=== PATIENT | female | born 1975 | race Caucasian/White ===

== ENCOUNTER 2023-08-29 07:50 | Inpatient (IN) | payer MEDICAID ==
[~2023-08-29] VITALS: Ht 175.3 cm; Wt 67.7 kg
[2023-08-29 12:05] VITALS: BP 136/82; PULSE 72; RESP 14; TEMP 98.2; O2SAT 98
[2023-08-29] MEDS ORDERED: magnesium hydroxide 30ml (MOM) UD suspension PO PRN (12:25)
[2023-08-29] MEDS ORDERED: acetaminophen 325mg tablet PO PRN (12:25)
[2023-08-29] MEDS ORDERED: loperamide 2mg capsule PO PRN (12:25)
[2023-08-29] MEDS ORDERED: mag hydrox/Alum hydrox/simeth 30ml oral suspension PO PRN (12:25)
[2023-08-29 13:08] VITALS: RESP 14; O2SAT 98
[2023-08-29] MEDS ORDERED: METH-798 PO (13:18)
[2023-08-29] MEDS ORDERED: FLUT16SP26 BOTHNARES (13:18)
[2023-08-29] MEDS ORDERED: GABA300C PO (13:18)
[2023-08-29] MEDS ORDERED: CHOL500050 PO (13:18)
[2023-08-29] MEDS ORDERED: ONDA8TAB13 PO (13:18)
[2023-08-29] MEDS ORDERED: ALPR1TAB7 PO (13:18)
[2023-08-29] MEDS ORDERED: LIDO700A47 TOP (13:18)
[2023-08-29] MEDS ORDERED: METO50TA16 PO (13:18)
[2023-08-29] MEDS ORDERED: AMLO10TA13 PO (13:18)
[2023-08-29] MEDS ORDERED: PREG50CA65 PO (13:18)
[2023-08-29] MEDS ORDERED: FENT1PAT7 TOP (13:18)
[2023-08-29] MEDS ORDERED: ALBU8HFA INH (13:18)
[2023-08-29] MEDS ORDERED: LORA10TA7 PO (13:32)
[2023-08-29] MEDS ORDERED: POTA8TAB69 PO (13:32)
[2023-08-29] MEDS ORDERED: VALA500T41 PO (13:32)
[2023-08-29] MEDS ORDERED: CLON0.2T2 PO (13:32)
[2023-08-29] MEDS: acetaminophen 325mg tablet PO PRN (14:35)
[2023-08-29] MEDS: cyclobenzaprine 10mg tablet PO SCH (18:35)
[2023-08-29] MEDS ORDERED: albuterol 2.5 MG/3 ML nebule NEB PRN (18:40)
[2023-08-29 19:00] VITALS: RESP 18; O2SAT 95
[2023-08-29 20:00] VITALS: BP 139/95; PULSE 66; RESP 18; TEMP 98.4; O2SAT 95
[2023-08-29] MEDS: valacyclovir 500mg tablet PO SCH (20:00)
[2023-08-29] MEDS: potassium chloride 8mEq ER tablet PO SCH (20:35)
[2023-08-29] MEDS: gabapentin 300mg capsule PO SCH (20:36)
[2023-08-29] MEDS: pregabalin 25mg capsule PO SCH (20:36)
[2023-08-29] MEDS: cholecalciferol (vitamin D3) 1,000 unit (25mcg) tablet PO SCH (20:37)
[2023-08-29] MEDS: metoprolol tartrate 50mg tablet PO SCH (20:38)
[2023-08-30 07:07] VITALS: RESP 14; O2SAT 98
[2023-08-30 08:00] VITALS: BP 140/97; PULSE 54; RESP 18; TEMP 97.8; O2SAT 99
[2023-08-30] MEDS: amLODIPine 5mg tablet PO SCH (08:00)
[2023-08-30] MEDS: loratadine 10mg tablet PO SCH (08:24)
[2023-08-30] MEDS: fluticasone nasal spray 16GM bottle NS SCH (08:26)
[2023-08-30] MEDS: LIDOcaine 5% patch TP SCH (08:26)
[2023-08-30 11:24] LABS: CHOL/HDL RATIO 4.1 (0.00-4.99); CHOLESTEROL 168 MG/DL (0-200); HDL CHOLESTEROL 41 MG/DL (35-60); LDL CHOLESTEROL 104 MG/DL (50-100); TRIGLYCERIDES 102 MG/DL (20-135)
[2023-08-30 12:51] LABS: HEMOGLOBIN A1C 5.6 % (4.5-6.2)
[2023-08-30 19:00] VITALS: RESP 16; O2SAT 97
[2023-08-30 19:32] VITALS: PULSE 96; RESP 16; O2SAT 98
[2023-08-30 19:45] VITALS: BP 141/88; PULSE 77; RESP 16; TEMP 98.1; O2SAT 97
[2023-08-31] MEDS: fentaNYL 25MCG/hour patch.TD72 TD SCH (03:17)
[2023-08-31 07:33] VITALS: RESP 14; O2SAT 98
[2023-08-31 08:00] VITALS: BP 122/88; PULSE 67; RESP 16; TEMP 98; O2SAT 95
[2023-08-31 14:25] VITALS: PULSE 53; RESP 16; O2SAT 98
[2023-08-31 19:00] VITALS: RESP 15; O2SAT 99
[2023-08-31 19:19] VITALS: BP 120/79; PULSE 61; RESP 15; TEMP 98.2; O2SAT 99
[2023-08-31] MEDS: LORazepam 1 MG tablet PO PRN (20:30)
[2023-09-01 07:00] VITALS: RESP 14; O2SAT 98
[2023-09-01 08:47] VITALS: BP 124/85; PULSE 54; RESP 14; TEMP 97.3; O2SAT 99
[2023-09-01] MEDS: ondansetron 4mg rapidly disintigrating tab PO PRN (11:30)
[2023-09-01 19:23] VITALS: BP 115/78; PULSE 82; RESP 14; TEMP 97.7; O2SAT 97
[2023-09-02] MEDS: cloNIDine 0.1 mg tablet PO PRN (00:41)
[2023-09-02 07:00] VITALS: RESP 16; O2SAT 100
[2023-09-02 07:27] VITALS: BP 126/89; PULSE 57; RESP 16; TEMP 98.6; O2SAT 100
[2023-09-02] MEDS ORDERED: valacyclovir 500mg tablet PO PRN (09:30)
[2023-09-02 19:00] VITALS: RESP 14; O2SAT 100
[2023-09-02 19:05] VITALS: BP 115/72; PULSE 60; RESP 14; TEMP 97.6; O2SAT 100
[2023-09-02] MEDS ORDERED: hydrOXYzine 25 MG tablet PO PRN (21:40)
[2023-09-03 07:00] VITALS: RESP 16; O2SAT 97
[2023-09-03 08:00] VITALS: BP 102/74; PULSE 78; RESP 16; TEMP 98
[2023-09-03 10:07] LABS: BASOPHILS % (AUTO) 0.7 % (0-1); EOSINOPHILS # (AUTO) 0.2 X10'3 (0-0.9); EOSINOPHILS % (AUTO) 2.9 % (0-6); HEMOGLOBIN 13.3 g/dl (12.0-16.0); LYMPHOCYTES # (AUTO) 2.1 X10'3 (1.1-4.8); LYMPHOCYTES % (AUTO) 39.9 % (21-51); MEAN CORPUSCULAR HEMOGLOBIN 32.6 PG (27.0-31.0); MEAN CORPUSCULAR HGB CONC 32.5 g/dL (33.0-36.5); MEAN PLATELET VOLUME 9.2 FL (7.4-10.4); MONOCYTES # (AUTO) 0.5 X10'3 (0-0.9); MONOCYTES % (AUTO) 8.5 % (2-12); NEUTROPHILS # (AUTO) 2.6 X10'3 (1.8-7.7); PLATELET COUNT 274 X10'3 (140-440); RED BLOOD COUNT 4.09 X10'6 (4.20-5.60); RED CELL DISTRIBUTION WIDTH 15.5 % (11.5-14.5); WHITE BLOOD COUNT 5.3 X10'3 (4.5-11.0)
[2023-09-03 10:46] LABS: PLATELET ESTIMATE NORMAL
[2023-09-03 10:53] LABS: ALANINE AMINOTRANSFERASE 17 U/L (12-78); ALBUMIN 3.4 G/DL (3.4-5.0); ALBUMIN/GLOBULIN RATIO 1.2 (1.1-1.5); ALKALINE PHOSPHATASE 33 IU/L (46-116); ANION GAP 9 (8-16); ASPARTATE AMINO TRANSFERASE 17 U/L (10-37); BILIRUBIN,TOTAL 0.4 MG/DL (0.1-1.0); BLOOD UREA NITROGEN 12 MG/DL (7-18); BUN/CREATININE RATIO 12.2 (10.0-20.0); CALCIUM 8.9 MG/DL (8.5-10.1); CHLORIDE 105 MMOL/L (99-107); CREATININE 0.98 MG/DL (0.40-0.90); GLUCOSE 80 MG/DL (70-104); POTASSIUM 3.8 MMOL/L (3.5-5.1); SODIUM 141 MMOL/L (135-145); TOTAL CARBON DIOXIDE 27.1 MMOL/L (24-32); TOTAL PROTEIN 6.2 G/DL (6.4-8.2); eCRCL 75 ML/MIN; eGFR 61 ML/MIN
[2023-09-03] MEDS ORDERED: METO25TA6 PO (11:43)
[2023-09-03] MEDS: lactose-reduced food (Ensure Enlive) - 237ml bottle PO SCH (12:48)
[2023-09-03] MEDS ORDERED: cyclobenzaprine 10mg tablet PO PRN (14:45)
[2023-09-03 19:00] VITALS: BP 116/75; PULSE 67; RESP 14; TEMP 98.3; O2SAT 100
[2023-09-03] MEDS: LORazepam 0.5 MG tablet PO PRN (19:51)
[2023-09-03] MEDS: docusate sod 100mg capsule PO SCH (20:12)
[2023-09-03] MEDS: gabapentin 100mg capsule PO SCH (20:14)
[2023-09-04 07:00] VITALS: BP 105/76; PULSE 62; RESP 14; RESP 18; TEMP 98.1; O2SAT 95; O2SAT 97
[2023-09-04 07:17] VITALS: BP_SYST 105; PULSE 62
[2023-09-04] MEDS ORDERED: NALO4SPR BOTHNARES (08:53)
== END 2023-09-04 11:15 | disposition home or self-care (01) | DRG 751 ==
LOC: ADULT MH 12:08
PROVIDERS: ADMIT Psychiatry & Neurology Psychiatry; ATTEND Psychiatry & Neurology Psychiatry
DX: F29 Unspecified psychosis not due to a substance or known physiological condition (principal); F22 Delusional disorders; E05.90 Thyrotoxicosis, unspecified without thyrotoxic crisis or storm; N39.0 Urinary tract infection, site not specified; G89.29 Other chronic pain; I10 Essential (primary) hypertension; M54.9 Dorsalgia, unspecified; F11.20 Opioid dependence, uncomplicated; F17.200 Nicotine dependence, unspecified, uncomplicated; Z83.3 Family history of diabetes mellitus; Z79.899 Other long term (current) drug therapy; Z82.49 Family history of ischemic heart disease and other diseases of the circulatory system; Z56.0 Unemployment, unspecified; Z88.2 Allergy status to sulfonamides; Z88.8 Allergy status to other drugs, medicaments and biological substances; Z88.6 Allergy status to analgesic agent; Z98.1 Arthrodesis status; F41.9 Anxiety disorder, unspecified
CPT/HCPCS: 36415; 80053; 80061; 83036; 85008; 85025; 87081; 94760; 99285